=== PATIENT | male | born 1945 | race Caucasian/White ===

== ENCOUNTER 2022-08-05 10:39 | Observation (INO) ==
--- NOTE | 2022-08-05 11:24 | XRay Report ---
XR chest 1V not portable CLINICAL HISTORY: Chest pain, nonspecific TECHNIQUE: Single frontal radiograph of the chest was obtained. Comparison: None available at the time of this dictation. FINDINGS: No lines and tubes are seen. The cardiomediastinal silhouette is normal. The lungs are clear. No evid ence of pleural effusion or pneumothorax. IMPRESSION: No acute chest disease. ACT 112: Negative or not required by law. Electronically signed by: Estevan Holly M.D. 08/05/2022 11:23 AM
[2022-08-05] MEDS ORDERED: LABETALOL HCL IV 5 MG/ML 20ML IV STA (12:46)
[2022-08-05] MEDS ORDERED: METOPROLOL TARTRATE 1 MG/ML VIAL IV STA ×2 (12:53→14:46)
[2022-08-05 13:00] LABS: Basophils # (auto) 0.05 K/uL (0-0.2); Basophils % (auto) 0.7 %; Eosinophils # (auto) 0.17 K/uL (0-0.50); Eosinophils % (auto) 2.5 %; Hematocrit (blood only) 41.8 % (42.0-52.0); Hemoglobin 13.9 g/dl (14.0-18.0); Immature Granulocytes # (auto) 0.02 K/uL (0.01-0.20); Immature Granulocytes % (auto) 0.3 %; Lymphocytes # (auto) 1.13 K/uL (1.2-3.4); Lymphocytes % (auto) 16.7 %; Mean Corpuscular Hemoglobin 30.3 pg (25.0-34.0); Mean Corpuscular Hgb Conc 33.3 g/dL (32.0-36.0); Mean Corpuscular Volume 91.3 fL (80.0-100.0); Mean Platelet Volume 10.7 fL (9.4-12.4); Monocytes # (auto) 0.54 K/uL (0.11-0.59); Neutrophils # (auto) 4.86 K/uL (1.40-6.50); Neutrophils % (auto) 71.8 %; Platelet Count 252 K/uL (130-400); RDW Coefficient of Variation 13.6 % (11.5-14.5); RDW Standard Deviation 46.1 fL (36.4-46.3); Red Blood Count 4.58 M/uL (4.70-6.10); White Blood Count 6.77 K/ul (4.8-10.8)
[2022-08-05 13:18] LABS: INR 1.2 (0.9-1.1); Partial Thromboplastin Time 27.6 Seconds (21.0-31.0); Prothrombin Time 12.6 Seconds (9.0-12.0)
[2022-08-05 13:45] LABS: Troponin I High Sensitivity 18.5 pg/ml (0-20)
[2022-08-05 13:48] LABS: Albumin Level 4.4 gm/dl (3.4-5.0); Bilirubin,Total 0.9 mg/dl (0.2-1.0); Calcium 9.2 mg/dl (8.6-10.3); Potassium 4.5 mmol/L (3.5-5.1)
[2022-08-05 13:54] LABS: Albumin Globulin Ratio 1.4 (0.9-2); BUN Creatinine Ratio 23.4 (10-20); Creatinine Clr Calc Pharmacy 66.8 ml/min; Est GFR (African American) 77.2 ml/min; Est GFR (Non-African American) 66.6 ml/min; Globulin 3.1 gm/dl (2.5-4.0); Total Protein 7.5 gm/dl (6.0-8.3)
[2022-08-05] MEDS ORDERED: Patient's ALLERGY Info needs ENTERED SCH (15:45)
--- NOTE | 2022-08-05 15:49 | History & Physical Report ---
Date of Service August 05, 2022 Assessment & Plan (1) New onset atrial fibrillation: (2) HTN (hypertension): (3) Prostate CA: (4) GERD (gastroesophageal reflux disease): Plan This is a 77-year-old male who has significant past medical history of HTN, GERD and prostate cancer who follows with the [place] [facility] who presents to ED secondary to new onset atrial fibrillation. New onset atrial fibrillation, asymptomatic, unknown duration Admit to PCU Consult cardiology Initiate IV heparin Metoprolol tartrate 25 mg twice daily, first dose now As needed IV Lopressor Obtain echocardiogram Obtain mag and TSH level Monitor PTTs [id number] 3 discussed anticoagulation with patient, Eliquis would be 47$/mo which pt is okay with Hypertension Patient was significantly elevated blood pressure in ED Overall he is very anxious over being admitted, will monitor closely while up on floor Currently on amlodipine 5 mg daily, may need increased if continues GERD continue PPI Prostate Ca follows [place] currently under surveillance DVT prophylaxis: IV heparin Dispo: Admit to PCU, patient adamant about being discharged tomorrow PCP: [place] [facility] Full code Patient was seen and examined in collaboration with Dr. Ibarra, please see addendum History of Present Illness Chief Complaint: Referred by [place] [facility] due to new onset atrial fibrillation. Primary Care Provider: NO PCP This is a 77-year-old male who has significant past medical history of HTN, GERD and prostate cancer who follows with the [place] [facility] who presents to ED secondary to new onset atrial fibrillation. His is at bedside. He was seen at the [place] clinic today for routine follow-up on EKG found him to be in new onset atrial fibrillation. He was referred to ED for further evaluation. Currently he feels well without no acute complaints. He denies fever, chills, sweats, lightheadedness, dizziness, chest pain, shortness of breath, cough, nausea, vomiting, abdominal pain, changes bowel or urinary habits. He has a good appetite. 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 He resides in [place], [place] with his . He follows at the [place] clinic for routine care including his prostate cancer. Biopsy confirmed active prostate cancer but is currently undergoing surveillance therapy and no active treatment. 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 In ED EKG revealed new onset A-fib with heart rates in the 90s to 100s. Lab work revealed H&H 13.9 and 41.8, BUN 27 and creatinine 1.07 and his troponin was WNL. His blood pressure was significantly elevated in ED and he attributes this to anxiousness. He received Lopressor 5 mg x 2 as well as IV labetalol. Allergies Allergy/AdvReac Type Severity Reaction Status Date / Time lactose Allergy Abdominal Verified 08/05/22 16:23 Pain Home Medications Medication Instructions Recorded Confirmed Type amlodipine 5 mg tablet 5 mg PO DAILY 08/05/22 08/05/22 History cetirizine 10 mg PO 1XD 08/05/22 08/05/22 History omeprazole 40 mg capsule,delayed 40 mg PO DAILY 08/05/22 08/05/22 History release vit C 250 mg-vit E 90 mg-zinc 40 1 tab PO BID 08/05/22 08/05/22 History mg-copper 1 [id number] capsule (PreserVision AREDS-2) Past Med/Surg History Medical History GERD (gastroesophageal reflux disease) HTN (hypertension) Prostate CA Surgical History History of left knee replacement History of thumb surgery Family History (Updated 08/05/22 @ 15:40 by Arlin Stein PA-C) Other Family history non-contributory Social History (Updated 08/05/22 @ 15:41 by Arlin Stein PA-C) Smoking Status: Never smoker Hx Alcohol Use: Yes Alcohol type: beer Alcohol type Comment: 2 light beers/day Hx Substance Use: No Preferred Language: Cymraes Communication Ability: Effective marital status: Current Living Situation: Spouse Feels Safe at Home: Yes Review of Systems Review of Systems: All systems reviewed & are unremarkable except as noted in HPI & below Physical Exam Physical Exam: Constitutional: WD/WN, male, vitals as above, NAD, sitting up in bed, pleasant, conversing easily Head: Normocephalic, Atraumatic Eyes: PERRL, conjunctivae normal, anicteric sclerae ENMT: external ear and nose normal, oropharynx normal Neck: trachea midline, no thyromegaly normal visual inspection Respiratory: normal respiratory effort, lungs clear to auscultation, no wheeze, rales, rhonchi. Normal insp/exp effort, no accessory muscle use Cardiovascular: Irregular rate, irregular rhythm, no murmur, no edema Vessels: no JVD or carotid bruit Chest: normal inspection of chest Abdomen: normal bowel sounds, soft, nontender, no hepatosplenomegaly Musculoskeletal: no cyanosis or clubbing, extremities motor strength 5/5 Skin: no rashes, warm and dry normal turgor Neurologic: PERRL, EOMI, accommodation nl, no face palsy, no dysarthria CN's II-XI intact bilaterally and moves all extremities Psychiatric: A+Ox3, euthymic affect Lymphatic: no cervical or axillary lymphadenopathy : deferred Results & Data Results & Data Vital Signs (Past 12 Hours) Vital Signs Temp Pulse Resp BP Pulse Ox 08/05/22 15:00 90 22 157/102 H 95 08/05/22 14:30 97 H 18 137/101 H 95 08/05/22 13:30 92 H 19 143/97 H 98 08/05/22 15:05 94 H 157/102 H 08/05/22 13:00 102 H 16 163/110 H 98 08/05/22 13:05 102 H 163/110 H 08/05/22 12:37 100 H 19 183/111 H 98 08/05/22 12:38 106 H 08/05/22 10:40 36.6 C 93 H 16 153/92 H 97 Diagnostic Findings Chest X-Ray 08/05/22 10:57 XR chest 1V not portable CLINICAL HISTORY: Chest pain, nonspecific TECHNIQUE: Single frontal radiograph of the chest was obtained. Comparison: None available at the time of this dictation. FINDINGS: No lines and tubes are seen. The cardiomediastinal silhouette is normal. The lungs are clear. No evidence of pleural effusion or pneumothorax. IMPRESSION: No acute chest disease. ACT 112: Negative or not required by law. Electronically signed by: Estevan Holly M.D. 08/05/2022 11:23 AM Medications Administered Medication List Discontinued Medications Labetalol HCl (Labetalol Hcl Iv 5 Mg/Ml 20ml) 10 mg IV NOW STA Stop: 08/05/22 12:47 Last Admin: 08/05/22 13:10 Dose: Not Given Documented By: MT Metoprolol Tartrate (Metoprolol Tartrate 1 Mg/Ml Vial) 5 mg IV NOW STA Stop: 08/05/22 12:54 Last Admin: 08/05/22 13:05 Dose: 5 mg Documented By: MT Metoprolol Tartrate (Metoprolol Tartrate 1 Mg/Ml Vial) 5 mg IV NOW STA Stop: 08/05/22 14:47 Last Admin: 08/05/22 15:05 Dose: 5 mg Documented By: MMZ ECG Rate (beats per minute): 98 Rhythm: atrial fibrillation Additional Comments: reviewed by ok COVID-19 Results Results COVID-19 Adm Lab Results: RBC 4.58 M/uL (4.70-6.10) L 08/05/22 WBC 6.77 K/ul (4.8-10.8) 08/05/22 Hgb 13.9 g/dl (14.0-18.0) L 08/05/22 Hct 41.8 % (42.0-52.0) L 08/05/22 Plt Count 252 K/uL (130-400) 08/05/22 Neutrophils (%) (Auto) 71.8 % 08/05/22 Lymphocytes (%) (Auto) 16.7 % 08/05/22 Monocytes # (Auto) 0.54 K/uL (0.11-0.59) 08/05/22 Eosinophils # (Auto) 0.17 K/uL (0-0.50) 08/05/22 Immature Granulocyte % (Auto) 0.3 % 08/05/22 Neutrophils # (Auto) 4.86 K/uL (1.40-6.50) 08/05/22 Lymphocytes # (Auto) 1.13 K/uL (1.2-3.4) L 08/05/22 Monocytes # (Auto) 0.54 K/uL (0.11-0.59) 08/05/22 Eosinophils # (Auto) 0.17 K/uL (0-0.50) 08/05/22 Basophils # (Auto) 0.05 K/uL (0-0.2) 08/05/22 Immature Granulocyte # (Auto) 0.02 K/uL (0.01-0.20) 3 Na 140 mmol/L (136-145) 08/05/22 K 4.5 mmol/L (3.5-5.1) 08/05/22 Cl 106 mmol/L (98-107) 08/05/22 CO2 26 mmol/L (21-32) 08/05/22 Anion Gap 8 (3-11) 08/05/22 BUN 25 mg/dl (6-23) H 08/05/22 Creatinine 1.07 mg/dl (0.6-1.4) 08/05/22 BUN/Creatinine Ratio 23.4 (10-20) H 08/05/22 Glucose Level 85 mg/dl (70-99(Fasting)) 08/05/22 Ca 9.2 mg/dl (8.6-10.3) 08/05/22 Total Bilirubin 0.9 mg/dl (0.2-1.0) 08/05/22 AST/SGOT 17 U/L (13-39) 08/05/22 ALT/SGPT 11 U/L (7-52) 08/05/22 Alkaline Phosphatase 62 U/L (34-104) 08/05/22 Total Protein 7.5 gm/dl (6.0-8.3) 08/05/22 Albumin 4.4 gm/dl (3.4-5.0) 08/05/22 Globulin 3.1 gm/dl (2.5-4.0) 08/05/22 Albumin/Globulin Ratio 1.4 (0.9-2) 08/05/22 PTT 27.6 Seconds (21.0-31.0) 08/05/22 INR 1.2 (0.9-1.1) H 08/05/22 SARS-CoV-2, RNA, NAAT NEGATIVE (NEGATIVE) 08/05/22 Chest X-Ray 08/05/22 Code Status & VTE Plan Code Status FULL CODE VTE Prophylaxis Plan VTE Prophylaxis will be ordered: No Reason for no VTE drug order: Treatment not indicated Supervising Physician Co-Signing Physician Notes Patient is a 77-year-old male with history of hypertension, prostate cancer and other medical problems presents with history of " funny feeling" retrosternally. Patient was evaluated by PCP at [place] [facility] and was sent to ED for further evaluation. Patient was found to be in A-fib RVR while in ED. He denies any significant chest pain, dyspnea, dizziness, nausea, abdominal pain. Please review HPI for complete details of presentation. I personally reviewed blood work, EKG, chest x-ray. On exam patient is moderately built and nourished, no apparent distress, normocephalic atraumatic, EOMI, normal breath sounds, clear to auscultation, irregularly irregular rhythm, tachycardic, no murmur, no pedal edema, abdomen soft, nontender, normal bowel sounds, alert, awake, oriented, grossly no focal deficits. Patient is admitted for management of A-fib RVR, hypertensive urgency--likely situational. TSH, electrolytes within normal limits. Started on metoprolol 25 mg twice daily. IV Lopressor as needed. Agree with echo, trend troponins, consulted cardiology, repeat EKG for tomorrow. N.p.o. after midnight. Started on IV heparin for anticoagulation. Adjust blood pressure medications as needed. I personally reviewed the record. Patient is interviewed and examined at bedside. Patient's care is coordinated with Arlin Stein PA-C. Please refer to the documentation above for details of patient's presentation and for discussion of other issues.
[2022-08-05] MEDS ORDERED: HEPARIN SODIUM/DEXTROSE 25,000 UNITS/500 ML BAG IV SCH (16:00)
[2022-08-05] MEDS: METOPROLOL TARTRATE 25 MG TAB PO SCH ×2 (17:16→20:47)
--- NOTE | 2022-08-05 17:23 | Emergency Department Note ---
Impression & Plan New onset atrial fibrillation ED Provider Note CHIEF COMPLAINT: Heart fluttering HISTORY OF PRESENT ILLNESS: This 77-year-old man patient with a history of hypertension and GERD presents to the emergency department from the [place] clinic. He was referred to the emergency department after an EKG reveals new onset atrial fibrillation. The patient was complaining of fluttering in the chest. He states he has had this in the past and it tends to resolve. 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 Patient states when he has the sensation he sits down and rests and it tends to resolve. He denies any recent illnesses fever, cough, abdominal pain, vomiting or diarrhea. REVIEW OF SYSTEMS: A review of systems was performed with positives and pertinent negatives listed in the history of present illness. 10 systems were reviewed and are otherwise negative. ALLERGIES: see below MEDICATIONS: see below PMH: see below SOCIAL HISTORY: see below DDx: Premature contractions, electrolyte abnormality, cardiac dysrhythmia, thyroid dysfunction, pulmonary embolism, infection, gastrointestinal, as well as other pathologies. PHYSICAL EXAM: Vital signs reviewed. Noted to be hypertensive General: Well-appearing 77-year-old male, in no significant distress. HEENT: No scleral icterus, PERRLA, neck supple. Atraumatic. Cardiovascular: Slightly tachycardic and irregular, no extra sounds Pulmonary: Clear to auscultation bilaterally, normal work of breathing. Abdomen: Soft, nontender, nondistended, positive bowel sounds. Musculoskeletal: Atraumatic, no peripheral edema. Neurologic: Patient awake alert and oriented x 3, speech is clear Skin: Warm, dry, no rash EMERGENCY DEPARTMENT COURSE/MDM: This patient was evaluated and appeared to be in no significant distress. IV access was obtained and laboratory work was drawn. Patient was placed on the panel monitor and noted to be in atrial fibrillation. The patient's heart rate was just above 100 and he was hypertensive. Patient did seem to be anxious about staying in the hospital. 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 He did receive 2 doses of IV metoprolol in the emergency department for rate control. Case was discussed with the [facility] hospitalist for further management. MONITORING: An order for cardiac monitoring was placed and the patient is noted to be in a atrial fibrillation at 106 beats per minute. RADIOLOGY: Chest x-ray to my interpretation reveals no evidence of focal lung consolidation or failure, otherwise defer to radiology EKG: Atrial fibrillation at [address] segments. QTc is 426. No PVC, no PAC. No previous for comparison. DISPOSITION: Admission I have personally spent 30 minutes of critical care time in the direct management of this patient. This was a life/limb threatening event. This 30 minutes is in excess of all separately billable procedures. Past Med/Surg History Medical History GERD (gastroesophageal reflux disease) HTN (hypertension) Prostate CA Surgical History History of left knee replacement History of thumb surgery Family History (Updated 08/05/22 @ 15:40 by Arlin Stein PA-C) Other Family history non-contributory Social History (Updated 08/05/22 @ 15:41 by Arlin Stein PA-C) Smoking Status: Never smoker Hx Alcohol Use: Yes Alcohol type: beer Alcohol type Comment: 2 light beers/day Hx Substance Use: No Preferred Language: Vietnamese Communication Ability: Effective marital status: Current Living Situation: Spouse Feels Safe at Home: Yes Allergies Allergies Allergy/AdvReac Type Severity Reaction Status Date / Time lactose Allergy Abdominal Verified 08/05/22 16:23 Pain Home Meds Home Medications Medication Instructions Recorded Confirmed amlodipine 5 mg tablet 5 mg PO DAILY 08/05/22 08/05/22 cetirizine 10 mg PO 1XD 08/05/22 08/05/22 omeprazole 40 mg capsule,delayed 40 mg PO DAILY 08/05/22 08/05/22 release vit C 250 mg-vit E 90 mg-zinc 40 1 tab PO BID 08/05/22 08/05/22 mg-copper 1 [id number] capsule (PreserVision AREDS-2) Results & Data (ED) Vital Signs Vital Signs - 24 hr 08/05/22 10:40 08/05/22 12:38 08/05/22 12:37 Temperature 36.6 C Temperature Source Temporal Artery Scan Pulse Rate 93 H 106 H 100 H Pulse Rate from SpO2 Sensor 84 Respiratory Rate 16 19 Blood Pressure 153/92 H 183/111 H Blood Pressure Mean 112 135 Pulse Oximetry 97 98 Sepsis Recent Fever Within 48 Hours No Sepsis New/Unexplained Change in Mental Status N/A Sepsis Action Taken by Nursing No Action Required 08/05/22 13:05 08/05/22 13:00 08/05/22 15:05 Temperature Temperature Source Pulse Rate 102 H 102 H 94 H Pulse Rate from SpO2 Sensor 100 H Respiratory Rate 16 Blood Pressure 163/110 H 163/110 H 157/102 H Blood Pressure Mean 127 Pulse Oximetry 98 Sepsis Recent Fever Within 48 Hours Sepsis New/Unexplained Change in Mental Status Sepsis Action Taken by Nursing 08/05/22 13:30 08/05/22 14:30 08/05/22 15:00 Temperature Temperature Source Pulse Rate 92 H 97 H 90 Pulse Rate from SpO2 Sensor 94 H 90 81 Respiratory Rate 19 18 22 Blood Pressure 143/97 H 137/101 H 157/102 H Blood Pressure Mean 112 113 120 Pulse Oximetry 98 95 95 Sepsis Recent Fever Within 48 Hours Sepsis New/Unexplained Change in Mental Status Sepsis Action Taken by Nursing 08/05/22 16:47 08/05/22 17:00 Temperature Temperature Source Pulse Rate 97 H 85 Pulse Rate from SpO2 Sensor 94 H Respiratory Rate 18 Blood Pressure 165/102 H Blood Pressure Mean 123 Pulse Oximetry 96 Sepsis Recent Fever Within 48 Hours Sepsis New/Unexplained Change in Mental Status Sepsis Action Taken by [facility] Medications Current Medication List: was personally reviewed by me Laboratory Data Attestation: I reviewed the patient's lab results. 08/05/22 12:39 08/05/22 12:39 Lab Results 08/05/22 08/05/22 08/05/22 Range/Units 12:39 12:39 12:39 WBC 6.77 (4.8-10.8) K/ul RBC 4.58 L (4.70-6.10) M/uL Hgb 13.9 L (14.0-18.0) g/dl Hct 41.8 L (42.0-52.0) % MCV 91.3 (80.0-100.0) fL MCH 30.3 (25.0-34.0) pg MCHC 33.3 (32.0-36.0) g/dL RDW Std Deviation 46.1 (36.4-46.3) fL RDW Coeff of David 13.6 (11.5-14.5) % Plt Count 252 (130-400) K/uL MPV 10.7 (9.4-12.4) fL Immature Gran % (Auto) 0.3 % Neut % (Auto) 71.8 % Lymph % (Auto) 16.7 % Louisa % (Auto) 8.0 % Eos % (Auto) 2.5 % Baso % (Auto) 0.7 % Neut # (Auto) 4.86 (1.40-6.50) K/uL Lymph # (Auto) 1.13 L (1.2-3.4) K/uL Louisa # (Auto) 0.54 (0.11-0.59) K/uL Eos # (Auto) 0.17 (0-0.50) K/uL Baso # (Auto) 0.05 (0-0.2) K/uL Immature Gran # (Auto) 0.02 (0.01-0.20) K/uL PT 12.6 H (9.0-12.0) Seconds INR 1.2 H (0.9-1.1) APTT 27.6 (21.0-31.0) Seconds PTT Ratio 1.0 Sodium 140 (136-145) mmol/L Potassium 4.5 (3.5-5.1) mmol/L Chloride 106 (98-107) mmol/L Carbon Dioxide 26 (21-32) mmol/L Anion Gap 8 (3-11) BUN 25 H (6-23) mg/dl Creatinine 1.07 (0.6-1.4) mg/dl Est Cr Clr Drug Dosing 66.8 ml/min Est GFR ( Amer) 77.2 ml/min Est GFR (Non-Af Amer) 66.6 ml/min BUN/Creatinine Ratio 23.4 H (10-20) Glucose 85 (70-99(Fasting)) mg/dl Calcium 9.2 (8.6-10.3) mg/dl Magnesium (1.7-2.4) mg/dl Total Bilirubin 0.9 (0.2-1.0) mg/dl AST 17 (13-39) U/L ALT 11 (7-52) U/L Alkaline Phosphatase 62 (34-104) U/L Troponin I High Sens 18.5 (0-20) pg/ml Total Protein 7.5 (6.0-8.3) gm/dl Albumin 4.4 (3.4-5.0) gm/dl Globulin 3.1 (2.5-4.0) gm/dl Albumin/Globulin Ratio 1.4 (0.9-2) TSH (0.300-4.500) uIu/ml SARS-CoV-2, RNA, NAAT (NEGATIVE) 08/05/22 08/05/22 08/05/22 Range/Units 15:20 15:52 15:52 WBC (4.8-10.8) K/ul RBC (4.70-6.10) M/uL Hgb (14.0-18.0) g/dl Hct (42.0-52.0) % MCV (80.0-100.0) fL MCH (25.0-34.0) pg MCHC (32.0-36.0) g/dL RDW Std Deviation (36.4-46.3) fL RDW Coeff of David (11.5-14.5) % Plt Count (130-400) K/uL MPV (9.4-12.4) fL Immature Gran % (Auto) % Neut % (Auto) % Lymph % (Auto) % Louisa % (Auto) % Eos % (Auto) % Baso % (Auto) % Neut # (Auto) (1.40-6.50) K/uL Lymph # (Auto) (1.2-3.4) K/uL Louisa # (Auto) (0.11-0.59) K/uL Eos # (Auto) (0-0.50) K/uL Baso # (Auto) (0-0.2) K/uL Immature Gran # (Auto) (0.01-0.20) K/uL PT (9.0-12.0) Seconds INR (0.9-1.1) APTT (21.0-31.0) Seconds PTT Ratio Sodium (136-145) mmol/L Potassium (3.5-5.1) mmol/L Chloride (98-107) mmol/L Carbon Dioxide (21-32) mmol/L Anion Gap (3-11) BUN (6-23) mg/dl Creatinine (0.6-1.4) mg/dl Est Cr Clr Drug Dosing ml/min Est GFR ( Amer) ml/min Est GFR (Non-Af Amer) ml/min BUN/Creatinine Ratio (10-20) Glucose (70-99(Fasting)) mg/dl Calcium (8.6-10.3) mg/dl Magnesium 2.2 (1.7-2.4) mg/dl Total Bilirubin (0.2-1.0) mg/dl AST (13-39) U/L ALT (7-52) U/L Alkaline Phosphatase (34-104) U/L Troponin I High Sens (0-20) pg/ml Total Protein (6.0-8.3) gm/dl Albumin (3.4-5.0) gm/dl Globulin (2.5-4.0) gm/dl Albumin/Globulin Ratio (0.9-2) TSH 1.392 (0.300-4.500) uIu/ml SARS-CoV-2, RNA, NAAT NEGATIVE (NEGATIVE) Administered Medications Heparin Sodium/Dextrose (Heparin Sodium/Dextrose) 25,000 units in 500 mls @ 29 mls/hr IV .[id number] [facility]; Protocol Stop: 09/04/22 15:59 Last Admin: 08/05/22 17:14 Dose: 1,450 units/hr, 29 mls/hr Documented By: JORDANA Co-signed By: VELVET Discontinued Medications Labetalol HCl (Labetalol Hcl Iv 5 Mg/Ml 20ml) 10 mg IV NOW STA Stop: 08/05/22 12:47 Last Admin: 08/05/22 13:10 Dose: Not Given Documented By: JORDANA Metoprolol Tartrate (Metoprolol Tartrate 1 Mg/Ml Vial) 5 mg IV NOW STA Stop: 08/05/22 12:54 Last Admin: 08/05/22 13:05 Dose: 5 mg Documented By: JORDANA Metoprolol Tartrate (Metoprolol Tartrate 1 Mg/Ml Vial) 5 mg IV NOW STA Stop: 08/05/22 14:47 Last Admin: 08/05/22 15:05 Dose: 5 mg Documented By: CURT Imaging Data Radiologist's Impression: Chest X-Ray 08/05/22 10:57 XR chest 1V not portable CLINICAL HISTORY: Chest pain, nonspecific TECHNIQUE: Single frontal radiograph of the chest was obtained. Comparison: None available at the time of this dictation. FINDINGS: No lines and tubes are seen. The cardiomediastinal silhouette is normal. The lungs are clear. No evidence of pleural effusion or pneumothorax. IMPRESSION: No acute chest disease. ACT 112: Negative or not required by law. Electronically signed by: Estevan Holly M.D. 08/05/2022 11:23 AM Discharge Plan Visit Data Chief Complaint: Abnormal Labs/Diagnostic Testing Stated Complaint: REF, ABNORMAL EKG ED Provider: Lucrecia Pizano Discharge Problem: New onset atrial fibrillation Forms Stand Alone Forms: [facility] Prescriptions Prescriptions: No Action amlodipine 5 mg Tablet 5 mg PO DAILY PreserVision AREDS-2 250-90-40-1 mg Capsule 1 tab PO BID omeprazole 40 mg Capsule,Delayed Release(Dr/Ec) 40 mg PO DAILY cetirizine tablet 10 mg PO 1XD Referrals Referrals: PCP,NO [Primary Care Provider] -
[2022-08-05] MEDS ORDERED: METOPROLOL TARTRATE 1 MG/ML VIAL IV PRN (18:26)
[2022-08-05] MEDS ORDERED: ALUMINUM/MAGNESIUM SUSP 30 ML UDC PO PRN (18:26)
[2022-08-05] MEDS ORDERED: MAGNESIUM HYDROXIDE SUSP 30 ML UDC PO PRN (18:26)
[2022-08-05] MEDS ORDERED: POLYETHYLENE (MIRALAX) 17 GM PACK PO PRN (18:26)
[2022-08-05] MEDS ORDERED: ACETAMINOPHEN 325 MG TAB PO PRN (18:26)
[2022-08-05] MEDS ORDERED: ONDANSETRON INJ 2 MG/ML 2 ML VIAL IV PRN (18:26)
[2022-08-05] MEDS: Heparin IV Adult Wt-Based Standard *NO* Bolus Protocol IV SCH (18:27)
[2022-08-06 00:33] LABS: Partial Thromboplastin Ratio 2.3
[2022-08-06 00:36] LABS: Partial Thromboplastin Time 62.6 Seconds (21.0-31.0)
[2022-08-06 04:59] LABS: Hematocrit (blood only) 39.9 % (42.0-52.0); Hemoglobin 12.9 g/dl (14.0-18.0); Mean Corpuscular Hemoglobin 29.5 pg (25.0-34.0); Mean Corpuscular Hgb Conc 32.3 g/dL (32.0-36.0); Mean Corpuscular Volume 91.3 fL (80.0-100.0); Mean Platelet Volume 10.4 fL (9.4-12.4); Platelet Count 205 K/uL (130-400); RDW Coefficient of Variation 13.3 % (11.5-14.5); RDW Standard Deviation 45.1 fL (36.4-46.3); Red Blood Count 4.37 M/uL (4.70-6.10); White Blood Count 5.13 K/ul (4.8-10.8)
[2022-08-06 05:11] LABS: BUN Creatinine Ratio 19.8 (10-20); Calcium 8.6 mg/dl (8.6-10.3); Creatinine Clr Calc Pharmacy 56.8 ml/min; Est GFR (Non-African American) 60.4 ml/min; Magnesium 2.2 mg/dl (1.7-2.4); Potassium 4.2 mmol/L (3.5-5.1)
[2022-08-06 05:50] LABS: Partial Thromboplastin Ratio 3.2
--- NOTE | 2022-08-06 06:09 | Electrocardiogram Report ---
Test Reason : Blood Pressure : / mmHG Vent. Rate : 098 BPM Atrial Rate : 127 BPM P-R Int : 000 ms QRS Dur : 082 ms QT Int : 334 ms P-R-T Axes : 000 -12 043 degrees QTc Int : 426 ms Atrial fibrillation Abnormal ECG No previous ECGs available Confirmed by Kel Smith ([id number]) on 08/06/2022 6:08:43 AM Referred By: Confirmed By:Kel Smith
[2022-08-06 06:16] LABS: Partial Thromboplastin Time 89.2 Seconds (21.0-31.0)
[2022-08-06] MEDS: Heparin IV Adult Wt-Based Standard *NO* Bolus Protocol IV SCH ×10 (07:01→07:54)
--- NOTE | 2022-08-06 08:50 | Cardiology Consultation ---
Date of Consultation August 06, 2022 Assessment & Plan (1) New onset atrial fibrillation: (2) GERD (gastroesophageal reflux disease): (3) HTN (hypertension): (4) Prostate CA: Plan I had a long discussion with the patient and explained the pathophysiology of atrial fibrillation and treatment options including rate versus rhythm control. The patient is currently asymptomatic and his desire is rate control and be discharged home. I believe that this is reasonable and he should be continued on metoprolol and be discharged on Eliquis 5 mg twice daily. I will review his echocardiogram prior to discharge and if it is okay then we should arrange follow-up as an outpatient. During that visit as an outpatient we will have further discussions regarding rate vs rhythm control. History of Present Illness Attending Physician: Smiley Schumacher, History of Present Illness This is a 77-year-old male patient with no prior history of heart disease. Most of his care has been through the [facility] system. He states he is very active. He has several gardens at home and apple trees that he prunes. He also chops wood to heat his home. He has been very active recently and has not had any cardiac symptoms. No fatigue or shortness of breath. No activity related chest pain. No dizziness or lightheadedness. The patient did noticed a little bit of flutt ering of his heart about 5 days ago which lasted a few seconds. He has had no additional symptoms. He was not concerned about the event except that his thought he should see his PCP at the [facility]. He was noted to be in newly discovered atrial fibrillation with reasonably controlled heart rate. He was referred for admission. His telemetry overnight would indicate that he is in continuous atri al fibrillation with rate control on the current Lopressor dose. He is currently on heparin. He is asymptomatic and would like to go home. Allergies Allergy/AdvReac Type Severity Reaction Status Date / Time lactose Allergy Abdominal Verified 08/05/22 16:23 Pain Home Medications Medication Instructions Recorded Confirmed Type amlodipine 5 mg tablet 5 mg PO DAILY 08/05/22 08/05/22 History cetirizine 10 mg PO 1XD 08/05/22 08/05/22 History omeprazole 40 mg capsule,delayed 40 mg PO DAILY 08/05/22 08/05/22 History release vit C 250 mg-vit E 90 mg-zinc 40 1 tab PO BID 08/05/22 08/05/22 History mg-copper 1 [id number] capsule (PreserVision AREDS-2) Patient History Medical History GERD (gastroesophageal reflux disease) HTN (hypertension) Prostate CA Surgical History History of left knee replacement History of thumb surgery Family History Other Family history non-contributory Social History Smoking Status: Former smoker Hx Alcohol Use: Yes Alcohol type: beer Alcohol type Comment: 2 light beers/day Hx Substance Use: No Preferred Language: Zambian Communication Ability: Effective 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 All other 10 point review of systems are negative. Physical Exam Physical Exam: General: no acute distress and stated age Head: normocephalic, no masses, lesions, tenderness or abnormalities Eyes: conjunctiva are pink and non-injected, sclera clear Neck: supple, no adenopathy, no bruits, normal jugular venous pulse, no hepatojugular reflux Chest: normal shape and normal respiratory effort Lungs: clear to auscultation and percussion Cardiac Exam: - regular rate & rhythm, no murmurs gallops or rubs - normal S1, normal S2 Pulses: 2(+) throughout Abdomen: abdomen soft, non-tender, no abnormal masses and no hepatosplenomegaly Musculoskeletal: no gait disturbance, no joint inflammation, no deforming arthritis Extremities: no edema and no cyanosis Neuro: grossly normal exam Results & Data Vital Signs (Past 12 Hours) Vital Signs Temp Pulse Pulse Resp BP Pulse Ox O2 Del Method 08/06/22 08:24 36.5 C 94 H 16 147/81 H 97 Room Air 08/06/22 07:54 92 H 08/06/22 04:50 36.8 C 78 20 113/82 95 Room Air 08/05/22 22:38 93 H 08/05/22 23:30 36.9 C 84 18 126/78 96 Room Air Laboratory Results Laboratory Results - last 24 hr 08/05/22 08/05/22 08/05/22 12:39 12:39 12:39 WBC 6.77 RBC 4.58 L Hgb 13.9 L Hct 41.8 L MCV 91.3 MCH 30.3 MCHC 33.3 RDW Std Deviation 46.1 RDW Coeff of David 13.6 Plt Count 252 MPV 10.7 Immature Gran % (Auto) 0.3 Neut % (Auto) 71.8 Lymph % (Auto) 16.7 Meagher % (Auto) 8.0 Eos % (Auto) 2.5 Baso % (Auto) 0.7 Neut # (Auto) 4.86 Lymph # (Auto) 1.13 L Meagher # (Auto) 0.54 Eos # (Auto) 0.17 Baso # (Auto) 0.05 Immature Gran # (Auto) 0.02 PT 12.6 H INR 1.2 H APTT 27.6 PTT Ratio 1.0 Sodium 140 Potassium 4.5 Chloride 106 Carbon Dioxide 26 Anion Gap 8 BUN 25 H Creatinine 1.07 Est Cr Clr Drug Dosing 66.8 Est GFR ( Amer) 77.2 Est GFR (Non-Af Amer) 66.6 BUN/Creatinine Ratio 23.4 H Glucose 85 Calcium 9.2 Magnesium Total Bilirubin 0.9 AST 17 ALT 11 Alkaline Phosphatase 62 Troponin I High Sens 18.5 Total Protein 7.5 Albumin 4.4 Globulin 3.1 Albumin/Globulin Ratio 1.4 TSH SARS-CoV-2, RNA, NAAT 08/05/22 08/05/22 08/05/22 15:20 15:52 15:52 WBC RBC Hgb Hct MCV MCH MCHC RDW Std Deviation RDW Coeff of David Plt Count MPV Immature Gran % (Auto) Neut % (Auto) Lymph % (Auto) Meagher % (Auto) Eos % (Auto) Baso % (Auto) Neut # (Auto) Lymph # (Auto) Meagher # (Auto) Eos # (Auto) Baso # (Auto) Immature Gran # (Auto) PT INR APTT PTT Ratio Sodium Potassium Chloride Carbon Dioxide Anion Gap BUN Creatinine Est Cr Clr Drug Dosing Est GFR ( Amer) Est GFR (Non-Af Amer) BUN/Creatinine Ratio Glucose Calcium Magnesium 2.2 Total Bilirubin AST ALT Alkaline Phosphatase Troponin I High Sens Total Protein Albumin Globulin Albumin/Globulin Ratio TSH 1.392 SARS-CoV-2, RNA, NAAT NEGATIVE 08/05/22 08/06/22 08/06/22 23:25 04:35 04:35 WBC 5.13 RBC 4.37 L Hgb 12.9 L Hct 39.9 L MCV 91.3 MCH 29.5 MCHC 32.3 RDW Std Deviation 45.1 RDW Coeff of David 13.3 Plt Count 205 MPV 10.4 Immature Gran % (Auto) Neut % (Auto) Lymph % (Auto) Meagher % (Auto) Eos % (Auto) Baso % (Auto) Neut # (Auto) Lymph # (Auto) Meagher # (Auto) Eos # (Auto) Baso # (Auto) Immature Gran # (Auto) PT INR APTT 62.6 H* PTT Ratio 2.3 Sodium 138 Potassium 4.2 Chloride 106 Carbon Dioxide 25 Anion Gap 7 BUN 23 Creatinine 1.16 Est Cr Clr Drug Dosing 56.8 Est GFR ( Amer) 70.0 Est GFR (Non-Af Amer) 60.4 BUN/Creatinine Ratio 19.8 Glucose 92 Calcium 8.6 Magnesium 2.2 Total Bilirubin AST ALT Alkaline Phosphatase Troponin I High Sens Total Protein Albumin Globulin Albumin/Globulin Ratio TSH SARS-CoV-2, RNA, NAAT 08/06/22 04:35 WBC RBC Hgb Hct MCV MCH MCHC RDW Std Deviation RDW Coeff of David Plt Count MPV Immature Gran % (Auto) Neut % (Auto) Lymph % (Auto) Meagher % (Auto) Eos % (Auto) Baso % (Auto) Neut # (Auto) Lymph # (Auto) Meagher # (Auto) Eos # (Auto) Baso # (Auto) Immature Gran # (Auto) PT INR APTT 89.2 H* PTT Ratio 3.2 Sodium Potassium Chloride Carbon Dioxide Anion Gap BUN Creatinine Est Cr Clr Drug Dosing Est GFR ( Amer) Est GFR (Non-Af Amer) BUN/Creatinine Ratio Glucose Calcium Magnesium Total Bilirubin AST ALT Alkaline Phosphatase Troponin I High Sens Total Protein Albumin Globulin Albumin/Globulin Ratio TSH SARS-CoV-2, RNA, NAAT Medications Administered Current Inpatient Medications Acetaminophen (Acetaminophen 325 Mg Tab) 650 mg PO Q4H PRN PRN Reason: Pain or Fever Stop: 09/04/22 18:25 Al Hydrox/Mg Hydrox/Simethicone (Aluminum/Magnesium Susp 30 Ml Udc) 15 ml PO Q4H PRN PRN Reason: Dyspepsia Stop: 09/04/22 18:25 Amlodipine Besylate (Amlodipine Besylate 5 Mg Tab) 5 mg PO DAILY [facility] Stop: 09/05/22 08:59 Heparin Sodium/Dextrose (Heparin Sodium/Dextrose) 25,000 units in 500 mls @ 26 mls/hr IV .[id number] [facility]; Protocol Stop: 09/04/22 15:59 Last Titration: 08/06/22 07:24 Dose: 1,300 units/hr, 26 mls/hr Magnesium Hydroxide (Magnesium Hydroxide Susp 30 Ml Udc) 30 ml PO Q12H PRN PRN Reason: Constipation Stop: 09/04/22 18:25 Metoprolol Tartrate (Metoprolol Tartrate 25 Mg Tab) 25 mg PO BID [facility] Stop: 09/04/22 15:34 Last Admin: 08/05/22 20:47 Dose: 25 mg Multivitamins/Minerals (Cerovite Adv Formula Tab) 1 tab PO QAM [facility] Stop: 09/05/22 08:59 Ondansetron HCl (Ondansetron Inj 2 Mg/Ml 2 Ml Vial) 4 mg IV Q6H PRN PRN Reason: Nausea Stop: 09/04/22 18:25 Pantoprazole Sodium (Pantoprazole 40 Mg Tab) 40 mg PO DAILY [facility] Stop: 09/05/22 08:59 Polyethylene Glycol (Polyethylene (Miralax) 17 Gm Pack) 17 gm PO DAILY PRN PRN Reason: Constipation Stop: 09/04/22 18:25
[2022-08-06] MEDS ORDERED: PANTOprazole 40 MG TAB PO SCH (09:00)
[2022-08-06] MEDS ORDERED: amLODIPine BESYLATE 5 MG TAB PO SCH (09:00)
[2022-08-06] MEDS ORDERED: CEROVITE ADV FORMULA TAB PO SCH (09:00)
[2022-08-06] MEDS ORDERED: HEPARIN STOP ORDER ONE (09:30)
[2022-08-06] MEDS ORDERED: APIXABAN 5 MG TABLET PO SCH (09:30)
[2022-08-06] MEDS: METOPROLOL TARTRATE 25 MG TAB PO SCH (09:50)
--- NOTE | 2022-08-06 13:09 | Discharge Summary ---
Discharge Summary Date of Service August 06, 2022 Notes For Next Care Provider New onset atrial fibrillation Needs cardiology follow-up as outpatient Medication Changes From Visit NEW Apixaban 5mg PO BID NEW Lopressor 25mg PO BID Admission HPI Per Admitting Provider This is a 77-year-old male who has significant past medical history of HTN, GERD and prostate cancer who follows with the [facility] who presents to ED secondary to new onset atrial fibrillation. His is at bedside. He was seen at the [facility] today for routine follow-up on EKG found him to be in new onset atrial fibrillation. He was referred to ED for further evaluation. Currently he feels well without no acute complaints. He denies fever, chills, sweats, lightheadedness, dizziness, chest pain, shortness of breath, cough, nausea, vomiting, abdominal pain, changes bowel or urinary habits. He has a good appetite. 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 He resides in [place], [place] with his . He follows at the [facility] for routine care including his prostate cancer. Biopsy confirmed active prostate cancer but is currently undergoing surveillance therapy and no active treatment. 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 In ED EKG revealed new onset A-fib with heart rates in the 90s to 100s. Lab work revealed H&H 13.9 and 41.8, BUN 27 and creatinine 1.07 and his troponin was WNL. His blood pressure was significantly elevated in ED and he attributes this to anxiousness. He received Lopressor 5 mg x 2 as well as IV labetalol. Principal Dx & Hospital Course #1 = Principal Diagnosis (1) New onset atrial fibrillation: (2) HTN (hypertension): (3) Prostate CA: (4) GERD (gastroesophageal reflux disease): Plan This is a 77-year-old male who has significant past medical history of HTN, GERD and prostate cancer who follows with the [facility] who presents to ED secondary to new onset atrial fibrillation. New onset atrial fibrillation, asymptomatic, unknown duration Admitted to PCU Consulted cardiology Initiated IV heparin Metoprolol tartrate 25 mg twice daily started Echo this admission revealed EF 55-60%, moderate concentric LVH, moderate AoV sclerosis without stenosis. TSH within normal limits. [id number] 3 discussed anticoagulation with patient, Eliquis would be 47$/mo which is fine with patient. 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 He verbalized understanding with intent to comply Hypertension Patient had significantly elevated blood pressure in ED as high as 183/111 This gradually came back down. continued on home BP meds at discharge-no changes. GERD chronic, stable. continue PPI [facility]state [facility] currently under [facility] DVT prophylaxis: IV heparin, transitioned to apixaban Dispo: Admited to PCU, discharged to home in stable condition. PCP: [facility], followup scheduled for next week prior to discharge. Full code Smiley Schumacher DO [facility] Hospitalist I spent a total [id number] coordinating, documenting, and providing care for this patient excluding time spent in the performance of separately billed services Discharge Exam Mentating and ambulating at baseline and tolerating PO Hemodynamically stable and afebrile Discharged to home in stable condition. Updated Medication List Medication Instructions Recorded Confirmed Type amlodipine 5 mg tablet 5 mg PO DAILY 08/05/22 08/05/22 History cetirizine 10 mg PO 1XD 08/05/22 08/05/22 History omeprazole 40 mg capsule,delayed 40 mg PO DAILY 08/05/22 08/05/22 History release vit C 250 mg-vit E 90 mg-zinc 40 1 tab PO BID 08/05/22 08/05/22 History mg-copper 1 [id number] capsule (PreserVision AREDS-2) apixaban 5 mg tablet (Eliquis) 5 mg PO BID #60 tabs 08/06/22 Rx metoprolol tartrate 25 mg tablet 25 mg PO BID #60 tabs 08/06/22 Rx Hospital Stay Data Consultations 08/05/22 15:03 ED Decision to Admit Stat 08/05/22 15:33 Consult Cardiology Routine Pending Results Patient Have Any Pending Studies at Discharge: No Discharge Instructions Given to Patient (Per Discharging Provider) Please take all medications as instructed on discharge list below. You were diagnosed with an abnormal rhythm of your heart called atrial fibrillation. Because this may put you at higher risk for stroke, you are being given a blood thinner called apixaban. Please don't take other blood thinners with this as you may have extra bleeding. Other common blood thinners would be nonsteroidal anti-inflammatories (NSAIDs) such as Motrin, Naproxen, Aleve, Ibuprofen. Vitamin E and other herbal supplements may also cause bleeding, so please check this with your outpatient physician. Atrial fibrillation may also cause palpitations and heart rate to rise. To help keep this in balance, you are being given metoprolol to take twice daily. It is recommended that you follow-up with your primary care physician within 1 week of discharge to review how these medications are working for you. Please also followup [facility] to evaluate how your atrial fibrillation treatment is going, and if there need to be any adjustments to your therapy. It was a pleasure taking care of you! Please call if you have any questions or problems. You can reach a [facility] hospitalist on duty at [facility] 24 hours a day by calling [phone]. Take care of yourself. Smiley Schumacher, DO [facility] Hospitalist Total Time Total Time Spent Total Time Spent (In Minutes): 60
--- NOTE | 2022-08-06 14:46 | Electrocardiogram Report ---
Test Reason : Blood Pressure : / mmHG Vent. Rate : 087 BPM Atrial Rate : 138 BPM P-R Int : 000 ms QRS Dur : 084 ms QT Int : 374 ms P-R-T Axes : 000 032 021 degrees QTc Int : 450 ms Atrial fibrillation Abnormal ECG When compared with ECG of 05-AUG-2022 10:54, No significant change was found Confirmed by Darrell Brink ([id number]) on 08/06/2022 2:45:35 PM Referred By: Nicko Simmons Confirmed By:Darrell Brink
== END 2022-08-06 14:42 | disposition home or self-care (01) ==
LOC: 4W 10:39 → ED 10:39 → SUATTDRO 15:32 → 4W 18:02